=== PATIENT | female | born 1985 | race African-American/Black ===

== ENCOUNTER 2024-07-11 22:48 | Emergency (ER) | payer SELFPAY ==
[2024-07-11 22:50] VITALS: BP 138/97; PULSE 89; RESP 18; TEMP 36.6; O2SAT 99
--- OUTSIDE RECORDS SUMMARY | 2024-07-11 22:51 | XMS_ITS | Clinical Summary ---
Author Organization [facility] Address [facility] [place] [address] Care Team Providers Care Ironworker Machine Operator Name Role Phone Unavailable Primary Care Provider Unavailabl e Social History Tobacco Use Types Packs/Day Years Used Date Smoking Tobacco: Never Assessed Comments Unknown Sex and Gender Information Value Date Recorded Sex Assigned at Not on file Legal Sex Female 7:12 PM CDT Gender Identity Not on file Sexual Orientation Not on file Last Filed Vital Signs Vital Sign Reading Time Taken Comments Blood Pressure 142/87 02/25/2012 11:48 AM MANAGER RETENTION Pulse 69 02/25/2012 11:48 AM MANAGER RETENTION Temperature - - Respiratory Rate - - Oxygen Saturation - - Inhaled Oxygen Concentration - - Weight 77.1 kg (170 lb) 02/25/2012 11:48 AM MANAGER RETENTION Height 170.2 cm (5' 7 ) 02/25/2012 11:48 AM MANAGER RETENTION Body Mass Index 26.63 02/25/2012 11:48 AM MANAGER RETENTION Plan of Treatment Health Maintenance Due Date Last Done Comments Cervical Cancer Screening Pa p Smear (Age 30 to 64) Every 3 Years 1984 Annual Physical 10/07/1987 Hepatitis C 2002 DTaP, Tdap and Td Vaccines ( 1 - Tdap) 10/07/2003 Hepatitis B Vaccines (1 of 3 - 19+ 3-dose series) 10/07/2003 Cervical Cancer Screening Pa p with HPV Testing (Age 30 to 64) Every 5 Years 2014 Cervical Cancer Screening with HPV 2014 COVID-19 Vaccine (2023-2 5 season) 2023 HPV Vaccines Aged Out No longer eligi ble based on patient's age to complete this topic Meningococcal B Vaccine Aged Out No l onger eligible based on patient's age to complete this topic Meningococcal Vaccine Aged Out No silvana adrienne eligible based on patient's age to complete this topic Pneumococcal Vaccine: Pediat rics (0 to 5 Years) and At-Risk Patients (6 to 49 Years) Aged Out No longer eligible b ased on patient's age to complete this topic RSV Immunizations Under 20 Months Aged Out No longer eligible based on patient's age to complete this topic
--- OUTSIDE RECORDS SUMMARY | 2024-07-11 22:51 | XMS_ITS | Referral Summary ---
Author Organization [facility] [address] [facility] Address [address] [place] [address] Care Team Providers Care Residential Real Estate Appraiser Name Role Phone Kristin Mendieta NP Primary Care Provider [phone] Allergies Active Allergy Reactions Criticality Noted Date Comments Latex Rash Medium 01/03/2020 Medications blood pressure test kit-wrist kitIndications:F atigue, unspecified type,Elevated BP without diagnosis of hypertension,Pal pitations 1 each daily 1 each 0 Active losartan (COZAAR) 50 mg tablet TAKE 1 TABLET BY MOUTH EVERY DAY 30 tablet 3 2 Active albuterol HFA (PROVENTIL HFA,VENTOLIN HFA,PROAIR HFA) 90 mcg/actuation inhaler TAKE 2 INHALATIONS NEEDED EVERY 4-6 HOURS 2 Active NIFEdipine (NIFEdipine CC) 60 mg 24 hr tablet TAKE 1 TABLET BY MOUTH EVERY DAY 90 tablet 4 Active Active Problems Problem Noted Date Diagnosed Date Obesity (BMI 30-39.9) 03/19/2022 Assessment & Plan (03/19/2022 3:53 PM GRADE AND CENTER MARKER): Obesity is unchanged. Discussed the patient's BMI. The BMI is above average. BMI management plan is completed. BMI Follow-up includes: nutrition counseling, exercise counseling and education provided. BMI 31.0-31.9,adult 03/19/2022 Assessment & Plan (03/19/2022 3:53 PM GRADE AND CENTER MARKER): Obesity is unchanged. Discussed the patient's BMI. The BMI is above average. BMI management plan is completed. BMI Follow-up includes: nutrition counseling, exercise counseling and education provided. Chest tightness 05/15/2021 Assessment & Plan (06/25/2021 12:26 PM CDT): ekg in office, reviewed with patient. Hr 63bpm, normal sinus rhythm with T wave changes. We discussed potential etiologies, including stress, however further workup is warranted. She will report to the er today for further evaluation and treatment. Essential hypertension 05/01/2021 Assessment & Plan (05/15/2021 9:25 AM GRADE AND CENTER MARKER): Discussed cutting back on caffeine, increasing water. Advised cutting back on creamer, fried/fatty foods, exercising 4x/week for 30min each session. Increase losartan to 50mg daily Assessment & Plan (05/01/2021 6:11 PM GRADE AND CENTER MARKER): Advised cutting back on sodium and caffeine Advised monitoring home bp with goal 120-130/80. She was advised to contact the office if diastolic is >100 or report to the ER. Vitamin D deficiency 01/09/2020 Assessment & Plan (05/01/2021 6:10 PM GRADE AND CENTER MARKER): Labs entered, will notify patient of results as available Assessment & Plan (01/09/2020 5:08 PM CDT): Retrieved and reviewed labs from [facility] with patient. Add angelito weekly. Hyperlipidemia 01/09/2020 Assessment & Plan (05/01/2021 6:09 PM GRADE AND CENTER MARKER): Fasting labs entered, will notify patient of results as available Assessment & Plan (01/09/2020 5:08 PM CDT): Retrieved and reviewed labs from [facility] with patient. Advised heart healthy diet, exercise 4x/week for 30min each session. Fatigue 01/03/2020 Assessment & Plan (01/03/2020 4:44 PM CDT): Will evaluate further will labs Advised daily mvi Palpitations 01/03/2020 Assessment & Plan (05/01/2021 6:09 PM GRADE AND CENTER MARKER): Fasting labs entered, will notify patient of results as available Will refer to cv for further evaluation and treatment Assessment & Plan (01/03/2020 4:43 PM CDT): Advised labs, holter monitor, and referral to cv. She declines referral at this time. Advised monitoring bp with goal 120/80, pulse 60-80. Advised cutting back on salt in diet. Advised f/u in 1w and bring bp log with her, will see her sooner if symptomatic. Iron deficiency anemia 01/03/2020 Assessment & Plan (01/03/2020 4:44 PM CDT): Will evaluate further with labs Advised daily mvi Advised discussing menses with barrel rib matting machine operator Resolved Problems Problem Noted Date Diagnosed Date Resolved Date BMI 31.0-31.9,adult 05/15/2021 03/19/19 23 Annual physical exam 05/01/2021 022 Assessment & Plan (05/01/2021 6:10 PM GRADE AND CENTER MARKER): Fasting labs entered, will notify patient of results as available Encouraged heart healthy diet, cutting back on sodium and caffeine Advised scheduling routine pap Encounter to establish care 01/03/2020 04/30/2021 Elevated BP without diagnosis of hypertension 01/03/2004/30/2021 Assessment & Plan (01/09/2020 5:07 PM CDT): Add losartan daily. Encouraged continued attempts at lower sodium diet. Assessment & Plan (01/03/2020 4:44 PM CDT): Advised labs, holter monitor, and referral to cv. She declines referral at this time. Advised monitoring bp with goal 120/80, pulse 60-80. Advised cutting back on salt in diet. Advised f/u in 1w and bring bp log with her, will see her sooner if symptomatic. Immunizations Immunization Administration Dates Next Due Influenza, Unspecified 12/14/2021 Moderna SARS-CoV-2 Monovalent Vaccination (12+ Y RS) 07/10/2020,06/12/2020 Tdap 05/01/2021 Social History Tobacco Use Types Packs/Day Years Used Date Smoking Tobacco: Never Smokeless Tobacco: Never Alcohol Use Standard Drinks/Week Comments Yes 0 (1 standard drink = 0.6 oz pur e alcohol) social AUDIT-C Answer Date Recorded Q1: How often do you have a drink containing alc ohol? Monthly or less 03/19/2022 Q2: How many drinks containi ng alcohol do you have on a typical day when you are drinking? 1 or 2 03/19/2022 Q3: How often do you have si x or more drinks on one occasion? 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 Not on file Not on file Last Filed Vital Signs Vital Sign Reading Time Taken Comments Blood Pressure 130/90 03/19/2022 3:52 PM GRADE AND CENTER MARKER Pulse 69 03/19/2022 3:52 PM GRADE AND CENTER MARKER Temperature 37.4 C (99.3 F) 03/19/2022 3:52 PM GRADE AND CENTER MARKER Respiratory Rate 18 05/01/2021 1:27 PM GRADE AND CENTER MARKER Oxygen Saturation 99% 03/19/2022 3:52 PM GRADE AND CENTER MARKER Inhaled Oxygen Concentration - - Weight 93 kg (205 lb 1.6 oz) 03/19/2022 3:52 PM GRADE AND CENTER MARKER Height 172.7 cm (5' 8 ) 03/19/2022 3:52 PM GRADE AND CENTER MARKER Body Mass Index 31.19 03/19/2022 3:52 PM GRADE AND CENTER MARKER Plan of Treatment Not on file Insurance [employer] OOS Care Teams Residential Real Estate Appraiser Relationship Specialty Start Date End Date Kristin Mendieta NP PCP - General Internal Medicine 03/19/22
--- OUTSIDE RECORDS SUMMARY | 2024-07-11 22:51 | XMS_ITS | Clinical Summary ---
Author Organization [facility] [address] [facility] Address [address] [place] [address] Care Team Providers Care Addressograph Operator Name Role Phone Kristin Mendieta NP Primary Care Provider [phone] Allergies Active Allergy Reactions Criticality Noted Date [...] 03/19/2022 Assessment & Plan (03/19/2022 3:53 PM PLANNING CONSULTANT): Obesity is unchanged. Discussed the patient's BMI. The BMI is above average. BMI management plan is completed. BMI Follow-up includes: nutrition counseling, exercise counseling and education provided. BMI 31.0-31.9,adult 03/19/2022 Assessment & Plan (03/19/2022 3:53 PM PLANNING CONSULTANT): Obesity is unchanged. Discussed the patient's BMI. [...] 05/01/2021 Assessment & Plan (05/15/2021 9:25 AM PLANNING CONSULTANT): Discussed cutting back on caffeine, increasing water. Advised cutting back on creamer, fried/fatty foods, exercising 4x/week for 30min each session. Increase losartan to 50mg daily Assessment & Plan (05/01/2021 6:11 PM PLANNING CONSULTANT): Advised cutting back on sodium and caffeine Advised monitoring home bp with goal 120-130/80. She was advised to contact the office if diastolic is >100 or report to the ER. Vitamin D deficiency 01/09/2020 Assessment & Plan (05/01/2021 6:10 PM PLANNING CONSULTANT): Labs entered, will notify patient of results as available Assessment & Plan (01/09/2020 5:08 PM CDT): Retrieved and reviewed labs from [facility] with patient. Add angelito weekly. Hyperlipidemia 01/09/2020 Assessment & Plan (05/01/2021 6:09 PM PLANNING CONSULTANT): Fasting labs entered, will notify patient of results as available Assessment & Plan (01/09/2020 5:08 PM CDT): Retrieved and reviewed labs from [facility] with patient. Advised heart healthy diet, exercise 4x/week for 30min each session. Fatigue 01/03/2020 Assessment & Plan (01/03/2020 4:44 PM CDT): Will evaluate further will labs Advised daily mvi Palpitations 01/03/2020 Assessment & Plan (05/01/2021 6:09 PM PLANNING CONSULTANT): Fasting labs entered, will notify patient of [...] Advised daily mvi Advised discussing menses with honey blender Resolved Problems Problem Noted Date Diagnosed Date Resolved Date BMI 31.0-31.9,adult 05/15/2021 03/19/19 23 Annual physical exam 05/01/2021 022 Assessment & Plan (05/01/2021 6:10 PM PLANNING CONSULTANT): Fasting labs entered, will notify patient of [...] Vaccination (12+ Y RS) 07/10/2020,06/12/2020 Tdap 05/01/2021 Medical History Medical History Date Comments Allergic Headache Iron deficiency anemia 01/03/2020 Vitamin D deficiency 01/09/2020 Hyperlipidemia 01/09/2020 Essential hypertension 05/01/2021 Obesity (BMI 30-39.9) 03/19/2022 Family History Medical History Relation Name Comments Hypertension Maternal Grandmother Hypertension Mother Hypertension Sister Relation Name Status Comments Father Alive Maternal Grandmother Alive Mother Alive Sister Alive Social History Tobacco Use Types Packs/Day Years [...] on file Legal Sex Female 12:10 AM PLANNING CONSULTANT Gender Identity Not on file Sexual Orientation Not on file 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 Not on file Not on file Obstetrics History Last Filed Vital Signs Vital Sign Reading Time Taken Comments Blood Pressure 130/90 03/19/2022 3:52 PM PLANNING CONSULTANT Pulse 69 03/19/2022 3:52 PM PLANNING CONSULTANT Temperature 37.4 C (99.3 F) 03/19/2022 3:52 PM PLANNING CONSULTANT Respiratory Rate 18 05/01/2021 1:27 PM PLANNING CONSULTANT Oxygen Saturation 99% 03/19/2022 3:52 PM PLANNING CONSULTANT Inhaled Oxygen Concentration - - Weight 93 kg (205 lb 1.6 oz) 03/19/2022 3:52 PM PLANNING CONSULTANT Height 172.7 cm (5' 8 ) 03/19/2022 3:52 PM PLANNING CONSULTANT Body Mass Index 31.19 03/19/2022 3:52 PM PLANNING CONSULTANT Plan of Treatment Health Maintenance Due Date Last Done Comments Cervical Cancer Screening 1984 Hepatitis C Screening 1984 Varicella Vaccines (1 of 2 - 13+ 2-dose series) 1997 Hepatitis B Screening 2002 Regular Well Visit/Exam 18-64 05/01/2022 05/01/2021 Depression Screening 03/19/2023 03/19/2022, 05/15/2021, 05/01/2021, Additional history exists Covid-19 Vaccine ( season) 2023 07/10/2020, 06/12/2020 Influenza Vaccine (#1) 2023 12/14/2021 DTaP/Tdap/Td Vaccine (6 - Td or Tdap) 05/01/2031 05/01/2021, 02/04/2017, 10/21/1995, Additional history exists HPV Vaccines Aged Out No longer eligi ble based on patient's age to complete this topic Pneumococcal vaccine <65 Aged Out No longer eligible based on patient's age to complete this topic Insurance [facility] CHOICE OOS Care Teams Addressograph Operator Relationship Specialty Start Date End Date Kristin Mendieta NP PCP - General Internal Medicine 03/19/22
--- NOTE | 2024-07-12 02:12 | PC.NURSE ---
Call x1 for room, no answer.
--- NOTE | 2024-07-12 03:12 | PC.NURSE ---
Call x2, no answer
--- OUTSIDE RECORDS SUMMARY | 2024-07-12 03:16 | XMS_ITS | Referral Summary ---
Author Organization [facility] [address] [facility] Address [address] [place] [address] Care Team Providers Care Park Worker Supervisor Name Role Phone Kristin Mendieta NP Primary Care Provider [phone] Allergies Active Allergy Reactions Criticality Noted Date [...] 03/19/2022 Assessment & Plan (03/19/2022 3:53 PM LICENSED FUNERAL DIRECTOR AND EMBALMER): Obesity is unchanged. Discussed the patient's BMI. The BMI is above average. BMI management plan is completed. BMI Follow-up includes: nutrition counseling, exercise counseling and education provided. BMI 31.0-31.9,adult 03/19/2022 Assessment & Plan (03/19/2022 3:53 PM LICENSED FUNERAL DIRECTOR AND EMBALMER): Obesity is unchanged. Discussed the patient's BMI. [...] 05/01/2021 Assessment & Plan (05/15/2021 9:25 AM LICENSED FUNERAL DIRECTOR AND EMBALMER): Discussed cutting back on caffeine, increasing water. Advised cutting back on creamer, fried/fatty foods, exercising 4x/week for 30min each session. Increase losartan to 50mg daily Assessment & Plan (05/01/2021 6:11 PM LICENSED FUNERAL DIRECTOR AND EMBALMER): Advised cutting back on sodium and caffeine Advised monitoring home bp with goal 120-130/80. She was advised to contact the office if diastolic is >100 or report to the ER. Vitamin D deficiency 01/09/2020 Assessment & Plan (05/01/2021 6:10 PM LICENSED FUNERAL DIRECTOR AND EMBALMER): Labs entered, will notify patient of results as available Assessment & Plan (01/09/2020 5:08 PM CDT): Retrieved and reviewed labs from [facility] with patient. Add angelito weekly. Hyperlipidemia 01/09/2020 Assessment & Plan (05/01/2021 6:09 PM LICENSED FUNERAL DIRECTOR AND EMBALMER): Fasting labs entered, will notify patient of results as available Assessment & Plan (01/09/2020 5:08 PM CDT): Retrieved and reviewed labs from [facility] with patient. Advised heart healthy diet, exercise 4x/week for 30min each session. Fatigue 01/03/2020 Assessment & Plan (01/03/2020 4:44 PM CDT): Will evaluate further will labs Advised daily mvi Palpitations 01/03/2020 Assessment & Plan (05/01/2021 6:09 PM LICENSED FUNERAL DIRECTOR AND EMBALMER): Fasting labs entered, will notify patient of [...] Advised daily mvi Advised discussing menses with refinery operator helper crude unit Resolved Problems Problem Noted Date Diagnosed Date Resolved Date BMI 31.0-31.9,adult 05/15/2021 03/19/19 23 Annual physical exam 05/01/2021 022 Assessment & Plan (05/01/2021 6:10 PM LICENSED FUNERAL DIRECTOR AND EMBALMER): Fasting labs entered, will notify patient of [...] on file Legal Sex Female 12:10 AM LICENSED FUNERAL DIRECTOR AND EMBALMER Gender Identity Not on file Sexual Orientation Not on file 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 Not on file Not on file Last Filed Vital Signs Vital Sign Reading Time Taken Comments Blood Pressure 130/90 03/19/2022 3:52 PM LICENSED FUNERAL DIRECTOR AND EMBALMER Pulse 69 03/19/2022 3:52 PM LICENSED FUNERAL DIRECTOR AND EMBALMER Temperature 37.4 C (99.3 F) 03/19/2022 3:52 PM LICENSED FUNERAL DIRECTOR AND EMBALMER Respiratory Rate 18 05/01/2021 1:27 PM LICENSED FUNERAL DIRECTOR AND EMBALMER Oxygen Saturation 99% 03/19/2022 3:52 PM LICENSED FUNERAL DIRECTOR AND EMBALMER Inhaled Oxygen Concentration - - Weight 93 kg (205 lb 1.6 oz) 03/19/2022 3:52 PM LICENSED FUNERAL DIRECTOR AND EMBALMER Height 172.7 cm (5' 8 ) 03/19/2022 3:52 PM LICENSED FUNERAL DIRECTOR AND EMBALMER Body Mass Index 31.19 03/19/2022 3:52 PM LICENSED FUNERAL DIRECTOR AND EMBALMER Plan of Treatment Not on file Insurance [employer] OOS Care Teams Park Worker Supervisor Relationship Specialty Start Date End Date Kristin Mendieta NP PCP - General Internal Medicine 03/19/22
--- OUTSIDE RECORDS SUMMARY | 2024-07-12 03:16 | XMS_ITS | Clinical Summary ---
Author Organization [facility] [address] [facility] Address [address] [place] [address] Care Team Providers Care General Matcher Name Role Phone Kristin Mendieta NP Primary Care Provider [phone] Allergies Active Allergy Reactions Criticality Noted Date [...] 03/19/2022 Assessment & Plan (03/19/2022 3:53 PM GLOBAL CMO): Obesity is unchanged. Discussed the patient's BMI. The BMI is above average. BMI management plan is completed. BMI Follow-up includes: nutrition counseling, exercise counseling and education provided. BMI 31.0-31.9,adult 03/19/2022 Assessment & Plan (03/19/2022 3:53 PM GLOBAL CMO): Obesity is unchanged. Discussed the patient's BMI. [...] 05/01/2021 Assessment & Plan (05/15/2021 9:25 AM GLOBAL CMO): Discussed cutting back on caffeine, increasing water. Advised cutting back on creamer, fried/fatty foods, exercising 4x/week for 30min each session. Increase losartan to 50mg daily Assessment & Plan (05/01/2021 6:11 PM GLOBAL CMO): Advised cutting back on sodium and caffeine Advised monitoring home bp with goal 120-130/80. She was advised to contact the office if diastolic is >100 or report to the ER. Vitamin D deficiency 01/09/2020 Assessment & Plan (05/01/2021 6:10 PM GLOBAL CMO): Labs entered, will notify patient of results as available Assessment & Plan (01/09/2020 5:08 PM CDT): Retrieved and reviewed labs from [facility] with patient. Add angelito weekly. Hyperlipidemia 01/09/2020 Assessment & Plan (05/01/2021 6:09 PM GLOBAL CMO): Fasting labs entered, will notify patient of results as available Assessment & Plan (01/09/2020 5:08 PM CDT): Retrieved and reviewed labs from [facility] with patient. Advised heart healthy diet, exercise 4x/week for 30min each session. Fatigue 01/03/2020 Assessment & Plan (01/03/2020 4:44 PM CDT): Will evaluate further will labs Advised daily mvi Palpitations 01/03/2020 Assessment & Plan (05/01/2021 6:09 PM GLOBAL CMO): Fasting labs entered, will notify patient of [...] Advised daily mvi Advised discussing menses with weight control engineer Resolved Problems Problem Noted Date Diagnosed Date Resolved Date BMI 31.0-31.9,adult 05/15/2021 03/19/19 23 Annual physical exam 05/01/2021 022 Assessment & Plan (05/01/2021 6:10 PM GLOBAL CMO): Fasting labs entered, will notify patient of [...] on file Legal Sex Female 12:10 AM GLOBAL CMO Gender Identity Not on file Sexual Orientation Not on file 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 Not on file Not on file Obstetrics History Last Filed Vital Signs Vital Sign Reading Time Taken Comments Blood Pressure 130/90 03/19/2022 3:52 PM GLOBAL CMO Pulse 69 03/19/2022 3:52 PM GLOBAL CMO Temperature 37.4 C (99.3 F) 03/19/2022 3:52 PM GLOBAL CMO Respiratory Rate 18 05/01/2021 1:27 PM GLOBAL CMO Oxygen Saturation 99% 03/19/2022 3:52 PM GLOBAL CMO Inhaled Oxygen Concentration - - Weight 93 kg (205 lb 1.6 oz) 03/19/2022 3:52 PM GLOBAL CMO Height 172.7 cm (5' 8 ) 03/19/2022 3:52 PM GLOBAL CMO Body Mass Index 31.19 03/19/2022 3:52 PM GLOBAL CMO Plan of Treatment Health Maintenance Due Date [...] patient's age to complete this topic Insurance [facility] CHOICE OOS Care Teams General Matcher Relationship Specialty Start Date End Date Kristin Mendieta NP PCP - General Internal Medicine 03/19/22
--- OUTSIDE RECORDS SUMMARY | 2024-07-12 03:16 | XMS_ITS | Clinical Summary ---
Author Organization [facility] Address [facility]ly [facility] [place] [address] Care Team Providers Care Safety Assistant Name Role Phone Unavailable Primary Care Provider [...] Comments Blood Pressure 142/87 02/25/2012 11:48 AM LEGAL SPECIALIST Pulse 69 02/25/2012 11:48 AM LEGAL SPECIALIST Temperature - - Respiratory Rate - - Oxygen Saturation - - Inhaled Oxygen Concentration - - Weight 77.1 kg (170 lb) 02/25/2012 11:48 AM LEGAL SPECIALIST Height 170.2 cm (5' 7 ) 02/25/2012 11:48 AM LEGAL SPECIALIST Body Mass Index 26.63 02/25/2012 11:48 AM LEGAL SPECIALIST Plan of Treatment Health Maintenance Due Date [...]
== END 2024-07-12 02:12 | disposition left against medical advice (07) ==
DX: R51.9 Headache, unspecified (principal)
CPT/HCPCS: 99199